=== PATIENT | male | born 1995 | race Two or more races ===

== ENCOUNTER 2018-06-04 12:11 | Emergency (ER) | payer OTHER ==
[~2018-06-04] VITALS: Ht 172.7 cm; Wt 98.1 kg
[2018-06-04 12:20] VITALS: BP 139/94
--- NOTE | 2018-06-04 12:25 | NUR ---
AAOX3, CAME TO ER C/O R ankle pain and swelling s/p fall off ladder (approximately 10ft) denies loc, neck, or back pain. RR IS EVEN AND UNLABORED WITH NAD NOTED. SKIN IS WARM AND DRY. [facility] WNL. AWAITING MD FOR EVAL.
[2018-06-04] MEDS ORDERED: MORPHINE SULFATE INJ 2 MG/ML DISP.SYRIN IM ONE (12:30)
[2018-06-04] MEDS ORDERED: BACITRACIN ZINC OINT PACKET 1 EA PACKET TP ONE ×2 (12:30→12:35)
[2018-06-04] MEDS ORDERED: ONDANSETRON 4 MG TAB.RAPDIS SL ONE (12:30)
[2018-06-04] MEDS ORDERED: MORPHINE SULFATE INJ 4 MG/ML DISP.SYRIN ONE (12:36)
[2018-06-04] MEDS ORDERED: ONDANSETRON 4 MG TAB.RAPDIS ONE (12:36)
[2018-06-04] MEDS ORDERED: MORPHINE SULFATE INJ 2 MG/ML DISP.SYRIN ONE (12:36)
--- NOTE | 2018-06-04 12:44 | NUR ---
PATIENT TRANSPORTED FOR XRAY
--- NOTE | 2018-06-04 14:24 | NUR ---
Patient discharged to home in stable condition. Written and verbal after care instructions given. Patient verbalizes understanding of instruction.
== END 2018-06-04 14:24 | disposition home or self-care (01) ==
LOC: ER 12:12
DX: S93.491A Sprain of other ligament of right ankle, initial encounter (principal); W11.XXXA Fall on and from ladder, initial encounter; Y93.89 Activity, other specified; Y92.89 Other specified places as the place of occurrence of the external cause; Y99.0 Civilian activity done for income or pay
CPT/HCPCS: 72100; 73590; 96372; 99284; A4606; J2270 ×2; Q0162; Z7610